=== PATIENT | male | born 2000 | race Caucasian/White ===

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

== ENCOUNTER 2020-02-09 20:00 | Emergency (ER) | payer BC ==
[2020-02-09 20:05] VITALS: BP 144/83; PULSE 67; RESP 18; TEMP 98.8
[2020-02-09] MEDS ORDERED: LIDOCAINE 1% INJ 10MG/ML (20 ML MDV) SQ ONE (20:31)
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
[2020-02-09] MEDS ORDERED: CEPHALEXIN 500MG STARTER PACK 4 CAP BTL PO STA (21:39)
[2020-02-09] MEDS ORDERED: ACET/COD 300 MG/30 MG STARTER PACK 6 TAB BTL PO STA (21:39)
== END 2020-02-09 22:02 | disposition home or self-care (01) ==
LOC: EC 20:00
DX: S11.91XA Laceration without foreign body of unspecified part of neck, initial encounter (principal); W22.8XXA Striking against or struck by other objects, initial encounter; Y92.219 Unspecified school as the place of occurrence of the external cause
CPT/HCPCS: 12001; 99282; J2001

== ENCOUNTER 2021-01-04 11:28 | Emergency (ER) | payer BC ==
[2021-01-04 11:32] VITALS: BP 153/90; PULSE 93; RESP 20; TEMP 97.5
[2021-01-04] MEDS ORDERED: DEXAMETHASONE SOD PHOSPHATE 10 MG/ML 1 ML VIAL IM STA (11:41)
[2021-01-04] MEDS ORDERED: CLINDAMYCIN 150 MG CAP PO STA (11:43)
--- NOTE | 2021-01-04 11:48 | ED ---
ENT HPI - General Chief complaint: ENT Stated complaint: Sore throat Time Seen by Provider: 01/04/21 11:34 Source: patient Mode of arrival: ambulatory Limitations: no limitations - History of Present Illness Initial comments: 20-year-old male presents to emergency department with a chief complaint of a sore throat for one week. States when it initially started, he went to an urgent care where he had a negative rapid test but he was not given any antibiotics. States it did initially improve, however it has not returned over the last 2-3 days with increasing severity. He does report painful swallowing. He denies any fevers or chills or any drooling. He does report mild voice changes but nothing significant. States he is also developed mild swelling along the left side of the neck. He is not diabetic. Denies any ear pain rhinorrhea cough. - Related Data Previous Rx's Medication Instructions Recorded Cephalexin [Keflex] 500 mg PO Q8HR 5 Days #15 cap 02/09/20 Clindamycin HCl 300 mg PO TID #30 cap 01/04/21 Allergies Allergy/AdvReac Type Severity Reaction Status Date / Time No Known Allergies Allergy Verified 01/04/21 11:32 Review of Systems ROS Statement: Those systems with pertinent positive or pertinent negative responses have been documented in the HPI. ROS Other: All systems not noted in ROS Statement are negative. Past Medical History Past Medical History: No Reported History History of Any Multi-Drug Resistant Organisms: None Reported Past Surgical History: Orthopedic Surgery Past Psychological History: No Psychological Hx Reported Smoking Status: Never smoker Past Alcohol Use History: Occasional Past Drug Use History: Marijuana General Exam Limitations: no limitations General appearance: alert, in no apparent distress, obese Head exam: Present: atraumatic, normocephalic, normal inspection Eye exam: Present: normal appearance, PERRL, EOMI Pupils: Present: normal accommodation ENT exam: Present: normal exam, mucous membranes moist, TM's normal bilaterally, normal external ear exam. Absent: normal oropharynx (Left tonsillar enlargement with erythema but no exudates. No signs of a peritonsillar abscess. Uvula midline. No hot potato voice.) Neck exam: Present: normal inspection, tenderness (Left-sided neck tenderness), full ROM, lymphadenopathy (Left anterior cervical lymph adenopathy) Respiratory exam: Present: normal lung sounds bilaterally. Absent: respiratory distress, wheezes, rales, rhonchi, stridor Cardiovascular Exam: Present: regular rate, normal rhythm, normal heart sounds. Absent: systolic murmur Extremities exam: Present: normal inspection, full ROM Back exam: Present: normal inspection, full ROM Neurological exam: Present: alert, oriented X3 Psychiatric exam: Present: normal affect, normal mood Skin exam: Present: warm, dry, intact, normal color Course Vital Signs 01/04/21 11:29 Temperature 97.5 F L Pulse Rate 93 Respiratory 20 Rate Blood Pressure 153/90 O2 Sat by Pulse 99 Oximetry Medical Decision Making - Medical Decision Making 20-year-old male presents emergency Department with a chief complaint of a sore throat. On physical examination, no signs of peritonsillar abscess. There is significant erythema with mild to moderate enlargement of the left tonsil. No exudates. He also has left anterior cervical of neuropathy. I will give him 10 mg of Decadron for symptomatically relief and will start him on clindamycin. Return parameters were thoroughly discussed the patient was understanding and agreeable. Case discussed with Dr. Garay. Disposition Clinical Impression: Tonsillitis, Sore throat Disposition: HOME SELF-CARE Condition: Stable Instructions (If sedation given, give patient instructions): Tonsillitis (ED) Additional Instructions: Take prescribed medication as directed. Return to emergency department if symptoms worsen. Perform salt water rinses. Follow-up with her primary care physician. Prescriptions: Clindamycin HCl 300 mg PO TID #30 cap Is patient prescribed a controlled substance at d/c from ED?: No Referrals: None,Stated [Primary Care Provider] - 1-2 days Time of Disposition: 11:48
== END 2021-01-04 12:00 | disposition home or self-care (01) ==
LOC: EC 11:28
DX: J03.90 Acute tonsillitis, unspecified (principal)
CPT/HCPCS: 99282; 96372; J1100

== ENCOUNTER 2021-06-10 02:12 | Emergency (ER) | payer BC ==
[2021-06-10] MEDS ORDERED: MORPHINE SULFATE 4 MG/ML SYRINGE IVP STA ×2 (02:24→04:29)
[2021-06-10] MEDS ORDERED: ONDANSETRON 4 MG/2 ML VIAL IVP STA (02:24)
[2021-06-10] MEDS ORDERED: RX INFO: IV CONTRAST WAS GIVEN 1 EACH MISC MISCELLANE PRN (02:24)
[2021-06-10] MEDS ORDERED: SODIUM CHLORIDE 0.9% 1,000 ML IV STA (02:24)
[2021-06-10] MEDS ORDERED: DIPH,PERTUS(ACELL)TETVAC-LF 0.5 ML VIAL IM ONE (02:24)
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
[2021-06-10 03:04] LABS: Basophils # (A) 0.1 k/uL (0-0.2); Basophils % (A) 0 %; Eosinophils # (A) 0.1 k/uL (0-0.7); Eosinophils % (A) 0 %; HCT 45.6 % (39.0-53.0); HGB 15.2 gm/dL (13.0-17.5); Lymphocytes # (A) 3.4 k/uL (1.0-4.8); Lymphocytes % (A) 23 %; MCH 30.5 pg (25.0-35.0); MCHC 33.3 g/dL (31.0-37.0); MCV 91.6 fL (80.0-100.0); Mean Platelet Volume 7.8; Monocytes # (A) 0.6 k/uL (0-1.0); Monocytes % (A) 4 %; Neutrophils # (A) 10.1 k/uL (1.3-7.7); Neutrophils % (A) 70 %; Platelet Count 295 k/uL (150-450); RBC 4.98 m/uL (4.30-5.90); RDW 12.3 % (11.5-15.5); WBC 14.5 k/uL (3.8-10.6)
[2021-06-10 03:12] LABS: ALT 29 U/L (4-49); AST 32 U/L (17-59); African American GFR (CKD) >90 (>60 ml/min/1.73 sqM); Albumin 4.7 g/dL (3.5-5.0); Alkaline Phosphatase 92 U/L (38-126); Anion Gap 16 mmol/L; Blood Urea Nitrogen 9 mg/dL (9-20); Calcium 9.2 mg/dL (8.4-10.2); Carbon Dioxide 22 mmol/L (22-30); Chloride 103 mmol/L (98-107); Glucose 115 mg/dL (74-99); Non-African American GFR(CKD) >90 (>60 ml/min/1.73 sqM); Potassium 3.4 mmol/L (3.5-5.1); Sodium 141 mmol/L (137-145); Total Bilirubin 0.4 mg/dL (0.2-1.3); Total Protein 8.1 g/dL (6.3-8.2)
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
[2021-06-10 03:43] LABS: Prothrombin Time 10.7 sec (9.0-12.0)
[2021-06-10 03:47] LABS: Appearance,Urine Clear (Clear); Bilirubin,Urine Negative (Negative); Blood,Urine Small (Negative); Color,Urine Light Yellow; Glucose,Urine (UA) Negative (Negative); Hyaline Casts,Urine 1 /lpf (0-2); Ketones,Urine Negative (Negative); Leukocyte Esterase,Urine Negative (Negative); Nitrite,Urine Negative (Negative); Protein,Urine Negative (Negative); RBC,Urine 1 /hpf (0-5); Specific Gravity,Urine 1.022 (1.001-1.035); Urobilinogen,Urine <2.0 mg/dL (<2.0); WBC,Urine <1 /hpf (0-5)
[2021-06-10] MEDS ORDERED: CEPHALEXIN 500 MG CAP PO STA (04:01)
[2021-06-10] MEDS ORDERED: ONDANSETRON 4 MG ODT STARTER PACK 2 TAB BTL PO STA (04:02)
[2021-06-10] MEDS ORDERED: ACET/COD 300 MG/30 MG STARTER PACK 6 TAB BTL PO STA (04:02)
[2021-06-10 04:08] LABS: Alcohol 165 mg/dL; Amphetamine Screen,Urine Not Detected (NotDetected); Barbiturate Screen,Urine Not Detected (NotDetected); Benzodiazepines Screen,Urine Not Detected (NotDetected); Cocaine Screen,Urine Detected (NotDetected); Methadone Screen, Urine Not Detected (NotDetected); Opiate Screen,Urine Detected (NotDetected); Oxycodone Screen, Urine Not Detected (NotDetected); Phencyclidine Screen,Urine Not Detected (NotDetected); Tricyclic Antidepressant,Urine Not Detected (NotDetected); Urn Cannabinoid Scrn Not Detected (NotDetected)
[2021-06-10 05:02] VITALS: BP 144/86; PULSE 114; RESP 22; TEMP 98.6
== END 2021-06-10 04:55 | disposition home or self-care (01) ==
LOC: EC 02:12
DX: S81.832A Puncture wound without foreign body, left lower leg, initial encounter (principal); S81.831A Puncture wound without foreign body, right lower leg, initial encounter; X95.9XXA Assault by unspecified firearm discharge, initial encounter
CPT/HCPCS: 36415; 93005; 86900; 86901; 80053; 83605; 84484; 85025; 85610; 85730; 86850; 81001; 80306; 80320; 71045; 73706; 90715; 99285; 96365; 96375; 96376; 90471; J2270; J0690; J2405; S0119; Q9967

== ENCOUNTER 2022-01-27 17:31 | Emergency (ER) | payer BC ==
[2022-01-27 17:37] VITALS: RESP 16; TEMP 98
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
[2022-01-27] MEDS ORDERED: Acetaminophen-Codeine 300-30mg TAB PO STA (19:23)
[2022-01-27] MEDS ORDERED: KETOROLAC 15 MG/ML 1 ML VIAL IM STA (19:23)
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
--- NOTE | 2022-01-27 20:09 | XR ---
EXAMINATION TYPE: XR shoulder complete RT DATE OF EXAM: 01/27/2022 COMPARISON: NONE HISTORY: Pain TECHNIQUE: 3 views FINDINGS: There is some mild malalignment of the AC joint. The glenohumeral joint appears intact. The re appears to be some widening of the coracoclavicular joint space. IMPRESSION: No fracture seen. There is probably a ligamentous tear at the AC joint and coracoclavicul ar joint.
[2022-01-27] MEDS ORDERED: ACET/COD 300 MG/30 MG STARTER PACK 6 TAB BTL PO STA (20:37)
[2022-01-27 21:36] VITALS: BP 144/93; PULSE 74
== END 2022-01-27 21:32 | disposition home or self-care (01) ==
LOC: EC 17:31
DX: S82.51XA Displaced fracture of medial malleolus of right tibia, initial encounter for closed fracture (principal); Z72.89 Other problems related to lifestyle; F12.90 Cannabis use, unspecified, uncomplicated; V29.9XXA Motorcycle rider (driver) (passenger) injured in unspecified traffic accident, initial encounter
CPT/HCPCS: 73030; 73610; 29515; 99284; 96372; J1885

== ENCOUNTER → 2022-01-31 | Outpatient (CLI) | payer BC ==
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
== END | disposition home or self-care (01) ==
LOC: RADCTMAIN 08:15
PROVIDERS: ATTEND Orthopaedic Surgery
DX: S43.121A Dislocation of right acromioclavicular joint, 100%-200% displacement, initial encounter (principal); S82.51XA Displaced fracture of medial malleolus of right tibia, initial encounter for closed fracture; M25.571 Pain in right ankle and joints of right foot; X58.XXXA Exposure to other specified factors, initial encounter